=== PATIENT | female | born 1950 | race Caucasian/White ===

== ENCOUNTER 2021-08-15 08:00 | Outpatient (CLI) | payer MEDICARE ==
[2021-08-15 16:21] LABS: ALBUMIN 4.3 g/dL (3.2-5.5); ALBUMIN/GLOBULIN RATIO 1.3 (1.0-2.2); ALKALINE PHOSPHATASE 66 IU/L (42-121); ALT ALANINE AMINOTRANSFERASE 13 IU/L (10-60); AST ASPARTATE AMINOTRANSFERASE 21 IU/L (10-42); BILIRUBIN,TOTAL 0.6 mg/dL (0.2-1.0); BUN - BLOOD UREA NITROGEN 14 mg/dL (6-20); CALCIUM 8.9 mg/dL (8.5-10.3); CARBON DIOXIDE - CO2 30 mmol/L (21-32); CHLORIDE 97 mmol/L (101-111); CHOL/HDL RATIO 2.6 (<4.4); CHOLESTEROL 225 mg/dL; CREATININE 0.7 mg/dL (0.4-1.0); GFR - MDRD 83 (>89); GLUCOSE 121 mg/dL (70-100); HDL CHOLESTEROL 85 mg/dL; LDL CHOLESTEROL,CALCULATED 121 mg/dL; LDL/HDL RATIO 1.4 (<4.4); POTASSIUM 4.4 mmol/L (3.5-5.0); SODIUM 137 mmol/L (135-145); TOTAL PROTEIN 7.5 g/dL (6.7-8.2); TRIGLYCERIDES 93 mg/dL; VLDL CHOLESTEROL 19 mg/dL
[2021-08-16 10:00] LABS: HEPATITIS C ANTIBODY NON-REACTIVE (NON-REACTIVE)
[2021-08-17 10:57] LABS: ESTIMATED AVERAGE GLUCOSE 128 mg/dL (70-100); HEMOGLOBIN A1c% 6.1 % (4.27-6.07)
== END 2021-08-15 23:59 ==
LOC: LAB 08:00
PROVIDERS: ATTEND Internal Medicine
DX: J44.9 Chronic obstructive pulmonary disease, unspecified (principal); L50.8 Other urticaria; Z82.49 Family history of ischemic heart disease and other diseases of the circulatory system; M81.0 Age-related osteoporosis without current pathological fracture; J30.2 Other seasonal allergic rhinitis; Z72.0 Tobacco use; R73.01 Impaired fasting glucose
CPT/HCPCS: 36415; 80053; 80061; 82306; 83721; 84443; 86803

== ENCOUNTER 2021-08-15 11:18 | Outpatient (CLI) | payer MEDICARE ==
--- NOTE | 2021-08-15 13:06 | XRAY Report ---
PROCEDURE: Chest 2 View X-Ray INDICATIONS: COUGH,LT RIB PAIN AFTER FALL TECHNIQUE: 2 view(s) of the chest. COMPARISON: None. FINDINGS: SUPPORT DEVICES: None. LUNGS/PLEURA: Mildly coarsened interstitial markings. No focal consolidation, pleural effusion or spa ce-occupying pneumothorax. MEDIASTINUM: The cardiomediastinal silhouette is within normal limits. BONES/SOFT TISSUES: No acute abnormality. IMPRESSION: 1.No acute cardiopulmonary abnormality. Reviewed by: Jerson Doshi MD on 08/15/2021 1:04 PM [facility] Approved by: Jerson Doshi MD on 08/15/2021 1:04 PM [facility] Station ID: [id number]
--- NOTE | 2021-08-15 13:09 | XRAY Report ---
PROCEDURE: Ribs 2 View LT INDICATIONS: COUGH,LT RIB PAIN AFTER FALL TECHNIQUE: 2 views of the left ribs were acquired. COMPARISON: None. FINDINGS: BONES: No acute, displaced fracture or dislocation. SOFT TISSUES: No focal abnormality. IMPRESSION: 1.No appreciable left rib fracture. Reviewed by: Jerson Doshi MD on 08/15/2021 1:08 PM [facility] Approved by: Jerson Doshi MD on 08/15/2021 1:08 PM [facility] Station ID: [id number]
== END 2021-08-15 11:19 | disposition home or self-care (01) ==
LOC: DI 11:18
PROVIDERS: ATTEND Internal Medicine
DX: R07.82 Intercostal pain (principal); R05.9 Cough, unspecified; R07.81 Pleurodynia; J44.9 Chronic obstructive pulmonary disease, unspecified; L50.8 Other urticaria; Z82.49 Family history of ischemic heart disease and other diseases of the circulatory system; M81.0 Age-related osteoporosis without current pathological fracture; J30.2 Other seasonal allergic rhinitis; Z72.0 Tobacco use; R73.01 Impaired fasting glucose
CPT/HCPCS: 36415; 80053; 80061; 82306; 83721; 84443; 86803

== ENCOUNTER 2021-08-16 13:01 | Outpatient (CLI) | payer MEDICARE ==
[2021-08-16 13:18] LABS: BASOPHILS # (AUTO) 0.1 10^3/uL (0.0-0.1); BASOPHILS % (AUTO) 0.8 %; EOSINOPHILS # (AUTO) 0.2 10^3/uL (0.0-0.7); EOSINOPHILS % (AUTO) 2.1 %; HCT - HEMATOCRIT 47.2 % (37.0-47.0); HGB - HEMOGLOBIN 15.4 g/dL (12.0-16.0); LYMPHOCYTES # (AUTO) 3.4 10^3/uL (1.5-3.5); LYMPHOCYTES % (AUTO) 37.6 %; MEAN CORPUSCULAR HEMOGLOBIN 31.8 pg (27.0-31.0); MEAN CORPUSCULAR HGB CONC 32.6 g/dL (32.0-36.0); MEAN CORPUSCULAR VOLUME 97.5 fL (81.0-99.0); MEAN PLATELET VOLUME 8.8 fL (7.9-10.8); MONOCYTES # (AUTO) 0.7 10^3/uL (0.0-1.0); MONOCYTES % (AUTO) 8.1 %; NEUTROPHILS # (AUTO) 4.6 10^3/uL (1.5-6.6); NEUTROPHILS % (AUTO) 51.2 %; PLT - PLATELET COUNT 257 10^3/uL (130-450); RED BLOOD COUNT 4.84 10^6/uL (4.20-5.40); RED CELL DISTRIBUTION WIDTH 13.9 % (12.0-15.0); WHITE BLOOD COUNT 8.9 x10^3/uL (4.8-10.8)
== END 2021-08-16 13:02 | disposition home or self-care (01) ==
LOC: LAB 13:01
PROVIDERS: ATTEND Internal Medicine
DX: J44.9 Chronic obstructive pulmonary disease, unspecified (principal); L50.8 Other urticaria; Z82.49 Family history of ischemic heart disease and other diseases of the circulatory system; M81.0 Age-related osteoporosis without current pathological fracture; J30.2 Other seasonal allergic rhinitis; Z72.0 Tobacco use
CPT/HCPCS: 36415; 85025

== ENCOUNTER 2022-05-18 17:01 | Emergency (ER) | payer MEDICARE ==
[2022-05-18] MEDS ORDERED: SODIUM CHLORIDE 0.9% 1,000 ML IV STA (17:41)
[2022-05-18] MEDS ORDERED: NIRMATRELVIR/RITONAVIR PREPACK PO STA (17:41)
[2022-05-18] MEDS ORDERED: IPRATROPIUM/ALBUTEROL 3 ML NEB INH STA (17:42)
--- NOTE | 2022-05-18 17:47 | ED Physician Documentation ---
PD HPI DYSPNEA - Stated complaint Stated Complaint: C+ SOA/LOW O2 - Chief complaint Chief Complaint: Resp - History obtained from History obtained from: Patient - Additional information Additional information: 72-year-old woman with oxygen dependent COPD who generally wears 3 L of oxygen at home and is unimmunized against COVID because "I never go anywhere." Has unfortunately developed symptomatic COVID. She is been sick for about 4 to 5 days with cough, body aches, extreme tiredness, and reportedly noted a home oximetry today of 70. On my evaluation her oxygen saturations are in the mid to high 90s on 2 L of nasal cannula. Review of Systems Ten Systems: 10 systems reviewed and negative Constitutional: denies: Fever, Chills Throat: denies: Dental pain / toothache, Sore throat Cardiac: denies: Chest pain / pressure, Palpitations Respiratory: reports: Dyspnea, Cough PD PAST MEDICAL HISTORY - Present Medications Home Medications: Ambulatory Orders Medication Instructions Recorded Confirmed Albuterol Sulfate [Proair 05/18/22 Respiclick] Fluticasone Propion/Salmeterol 1 each IH DAILY 05/18/22 05/18/22 [Wixela 250-50 Inhub] - Allergies Allergies/Adverse Reactions: Allergies Allergy/AdvReac Type Severity Reaction Status Date / Time Penicillins Allergy Rash Verified 05/18/22 17:12 PD ED PE NORMAL - Vitals Vital signs reviewed: Yes - General General: Alert and oriented X 3, No acute distress - HEENT HEENT: PERRL, EOMI - Neck Neck: Supple, no meningeal sign, No bony TTP - Cardiac Cardiac: RRR, No murmur - Respiratory Respiratory: No respiratory distress, Clear bilaterally - Abdomen Abdomen: Soft, Non tender - Back Back: No CVA TTP, No spinal TTP - Derm Derm: Normal color, Warm and dry - Extremities Extremities: No edema, No calf tenderness / cord - Neuro Neuro: Alert and oriented X 3, Normal speech - Psych Psych: Normal mood, Normal affect Results - Vitals Vitals: Vital Signs - 24 hr 05/18/22 05/18/22 05/18/22 17:06 17:40 17:49 Temperature 38.0 C H Heart Rate 106 H 99 69 Respiratory 20 21 Rate Blood Pressure 96/71 O2 Saturation 92 95 If not protocol 3 : Oxygen Flow, liters/minute 05/18/22 19:02 Temperature 37.2 C Heart Rate 100 Respiratory 22 Rate Blood Pressure 116/76 O2 Saturation 95 If not protocol : Oxygen Flow, liters/minute Oxygen O2 Source Room air Oxygen Flow Rate 2 - Labs Labs: Laboratory Tests 05/18/22 05/18/22 17:54 18:10 WBC 7.3 RBC 4.94 Hgb 15.0 Hct 45.2 MCV 91.5 MCH 30.4 MCHC 33.2 RDW 13.3 Plt Count 257 MPV 11.0 H Neut # (Auto) 5.7 Lymph # (Auto) 0.9 L Arthur # (Auto) 0.7 Eos # (Auto) 0.0 Baso # (Auto) 0.0 Absolute Nucleated RBC 0.00 Nucleated RBC % 0.0 Sodium 134 L Potassium 4.1 Chloride 92 L Carbon Dioxide 31 Anion Gap 11.0 BUN 10 Creatinine 0.8 Estimated GFR (MDRD) 71 L Glucose 137 H Calcium 8.1 L - Rads (name of study) Single view chest x-ray is unremarkable Radiology: EMP read contemporaneously PD MEDICAL DECISION MAKING - ED course ED course: 72-year-old woman presents with symptomatic COVID. She is definitely a good candidate for antiviral medications. There was reported a home saturation of 70% but there was no desaturation at all here. No evidence of COVID-pneumonia on x-ray. Departure - Departure Disposition: 01 Home, Self Care Clinical Impression: COVID-19 Condition: Good Record reviewed to determine appropriate education?: Yes Instructions: ED Viral Syndrome Comments: You were seen today for COVID, thankfully your oxygen levels here have been just fine. No evidence of pneumonia on chest x-ray. We are prescribing antiviral medications that should help shorten the course of illness. You need to home quarantine for the next 10 days. Return for new or worsening symptoms. Discharge Date/Time: 05/18/22 19:02
[2022-05-18 18:02] LABS: BASOPHILS % (AUTO) 0.3 %; HCT - HEMATOCRIT 45.2 % (37.0-47.0); LYMPHOCYTES # (AUTO) 0.9 10^3/uL (1.5-3.5); LYMPHOCYTES % (AUTO) 12.4 %; MEAN CORPUSCULAR HEMOGLOBIN 30.4 pg (27.0-31.0); MEAN CORPUSCULAR HGB CONC 33.2 g/dL (32.0-36.0); MEAN CORPUSCULAR VOLUME 91.5 fL (81.0-99.0); MONOCYTES # (AUTO) 0.7 10^3/uL (0.0-1.0); MONOCYTES % (AUTO) 9.4 %; NEUTROPHILS # (AUTO) 5.7 10^3/uL (1.5-6.6); NEUTROPHILS % (AUTO) 77.6 %; PLT - PLATELET COUNT 257 10^3/uL (130-450); RED BLOOD COUNT 4.94 10^6/uL (4.20-5.40); RED CELL DISTRIBUTION WIDTH 13.3 % (12.0-15.0); WHITE BLOOD COUNT 7.3 x10^3/uL (4.8-10.8)
--- NOTE | 2022-05-18 18:21 | XRAY Report ---
PROCEDURE: Chest 1 View X-Ray INDICATIONS: dyspnea TECHNIQUE: One view of the chest was acquired. COMPARISON: None. FINDINGS: Surgical changes and devices: None. Lungs and pleura: No pleural effusions or pneumothorax. Lungs are clear. Mediastinum: Mediastinal contours appear normal. Heart size is normal. Bones and chest wall: No suspicious bony lesions. Overlying soft tissues appear unremarkable. IMPRESSION: No acute cardiopulmonary abnormality. Reviewed by: Benji Sol on 05/18/2022 6:19 PM [facility] Approved by: Benji Sol on 05/18/2022 6:19 PM [facility] Station ID: [id number]
[2022-05-18 18:23] LABS: CALCIUM 8.1 mg/dL (8.5-10.3); CREATININE 0.8 mg/dL (0.4-1.0); POTASSIUM 4.1 mmol/L (3.5-5.0)
[2022-05-18 19:03] VITALS: BP 116/76
== END 2022-05-18 19:02 | disposition home or self-care (01) ==
LOC: ED 17:01
DX: U07.1 COVID-19 (principal); J44.9 Chronic obstructive pulmonary disease, unspecified; Z99.81 Dependence on supplemental oxygen
CPT/HCPCS: 36415; 71045; 80048; 85025; 94640; 96360; 99283; 99285; J3490

== ENCOUNTER 2022-07-11 08:55 | Inpatient (IN) | payer MEDICARE ==
[2022-07-11] MEDS ORDERED: IPRATROPIUM/ALBUTEROL 3 ML NEB INH STA (09:26)
[2022-07-11] MEDS ORDERED: methylPREDNISolone SUCCINATE 125 MG/2 ML VIAL IVP STA (09:27)
[2022-07-11] MEDS ORDERED: ALBUTEROL NEB 2.5 MG/3 ML INH STA (09:27)
[2022-07-11 09:44] LABS: BASOPHILS # (AUTO) 0.1 10^3/uL (0.0-0.1); BASOPHILS % (AUTO) 0.6 %; EOSINOPHILS # (AUTO) 0.2 10^3/uL (0.0-0.7); EOSINOPHILS % (AUTO) 2.3 %; HCT - HEMATOCRIT 51.2 % (37.0-47.0); HGB - HEMOGLOBIN 15.7 g/dL (12.0-16.0); LYMPHOCYTES # (AUTO) 2.6 10^3/uL (1.5-3.5); LYMPHOCYTES % (AUTO) 30.4 %; MEAN CORPUSCULAR HEMOGLOBIN 29.6 pg (27.0-31.0); MEAN CORPUSCULAR HGB CONC 30.7 g/dL (32.0-36.0); MEAN CORPUSCULAR VOLUME 96.6 fL (81.0-99.0); MEAN PLATELET VOLUME 8.8 fL (7.9-10.8); MONOCYTES # (AUTO) 0.5 10^3/uL (0.0-1.0); MONOCYTES % (AUTO) 5.9 %; NEUTROPHILS # (AUTO) 5.2 10^3/uL (1.5-6.6); NEUTROPHILS % (AUTO) 60.6 %; PLT - PLATELET COUNT 314 10^3/uL (130-450); RED CELL DISTRIBUTION WIDTH 14.3 % (12.0-15.0); WHITE BLOOD COUNT 8.6 x10^3/uL (4.8-10.8)
[2022-07-11 09:52] LABS: ALBUMIN 4.2 g/dL (3.2-5.5); ALBUMIN/GLOBULIN RATIO 1.4 (1.0-2.2); BILIRUBIN,TOTAL 0.8 mg/dL (0.2-1.0); CALCIUM 8.9 mg/dL (8.5-10.3); CREATININE 0.7 mg/dL (0.4-1.0); POTASSIUM 3.9 mmol/L (3.5-5.0); TOTAL PROTEIN 7.2 g/dL (6.7-8.2)
--- NOTE | 2022-07-11 10:39 | XRAY Report ---
PROCEDURE: Chest 1 View X-Ray INDICATIONS: SOA TECHNIQUE: One view of the chest was acquired. COMPARISON: Chest x-ray 05/18/2022 FINDINGS: Surgical changes and devices: None. Lungs and pleura: . There is a large left pneumothorax with collapsed lung noted in the inferior me dial left lower lobe. There is Approximate 6 mm [id number] midline shift. Mild increased edema is noted within the right lung. Mediastinum: Mediastinal contours appear normal. Heart size is normal. Bones and chest wall: No suspicious bony lesions. Overlying soft tissues appear unremarkable. IMPRESSION: Large left pneumothorax with left to right midline shift as above. The above findings were discussed with Dr. Lauro Rodriguez on 07/11/2022 at 10:32 AM. Reviewed by: Kelli Buitrago MD on 07/11/2022 10:37 AM [facility] Approved by: Kelli Buitrago MD on 07/11/2022 10:37 AM [facility] Station ID: [id number]
[2022-07-11] MEDS ORDERED: KETAMINE 500 MG/10 ML VIAL IVP STA (10:42)
[2022-07-11] MEDS ORDERED: ONDANSETRON 4 MG/2 ML VIAL IVP STA (10:42)
[2022-07-11 11:03] LABS: B. PARAPERTUSSIS- RESP PCR PAN NOT DETECTED; B. PERTUSSIS- RESP PCR PANEL NOT DETECTED; C. PNEUMONIAE- RESP PCR PANEL NOT DETECTED; CORONAVIRUS 229E-RESP PCR NOT DETECTED; CORONAVIRUS HKU1-RESP PCR NOT DETECTED; CORONAVIRUS NL63-RESP PCR NOT DETECTED; CORONAVIRUS OC43-RESP PCR NOT DETECTED; HUMAN METAPNEUMOVIRUS NOT DETECTED; INFLUENZA A- RESP PCR PANEL NOT DETECTED; INFLUENZA B - RESP PCR PANEL NOT DETECTED; M. PNEUMONIAE- RESP PCR PANEL NOT DETECTED; PARAINFLUENZA VIRUS 1 NOT DETECTED; PARAINFLUENZA VIRUS 2 NOT DETECTED; PARAINFLUENZA VIRUS 3 NOT DETECTED; PARAINFLUENZA VIRUS 4 NOT DETECTED; RHINOVIRUS/ENTEROVIRUS NOT DETECTED; RSV- RESP PCR PANEL NOT DETECTED; SARS-CoV-2 -RESP PCR PANEL NOT DETECTED
--- NOTE | 2022-07-11 12:10 | XRAY Report ---
PROCEDURE: Chest for Line Placement INDICATIONS: post tube TECHNIQUE: One view of the chest was acquired. COMPARISON: None. FINDINGS: Surgical changes and devices: Left chest tube is present overlying the left lung. Lungs and pleura: Mild increased pulmonary vascularity. There is a minimal left apical pneumothorax persisting. No midline shift. Mediastinum: Mediastinal contours appear normal. Heart size is normal. Bones and chest wall: No suspicious bony lesions. Overlying soft tissues appear unremarkable. IMPRESSION: . Minimal residual left apical pneumothorax. Reviewed by: Kelli Buitrago MD on 07/11/2022 12:08 PM PST Approved by: Kelli Buitrago MD on 07/11/2022 12:08 PM [facility] Station ID: [id number]
--- NOTE | 2022-07-11 12:26 | ED Physician Documentation ---
PD HPI DYSPNEA - Stated complaint Stated Complaint: SOA - Chief complaint Chief Complaint: Resp - History obtained from History obtained from: Patient - Additional information Additional information: Patient is a 72-year-old with a history of COPD on oxygen presenting for evaluation of shortness of breath that she woke up with this morning. She tried her home inhalers without any improvement. She cannot get her oxygen levels to increase past the mid 70s. She reports having some discomfort to the mild chest. She has had a cough which is unchanged for her and is at times productive but this is also unchanged for her. She denies blood in her sputum. She denies fever. She denies abdominal pain, vomiting, trauma. Review of Systems Constitutional: denies: Fever Cardiac: reports: Chest pain / pressure Respiratory: reports: Dyspnea, Cough GI: denies: Abdominal Pain Musculoskeletal: denies: Back pain Neurologic: denies: Headache PD PAST MEDICAL HISTORY - Present Medications Home Medications: Ambulatory Orders Medication Instructions Recorded Confirmed Albuterol Sulfate [Proair 2 puffs PO QID PRN 05/18/22 07/11/22 Respiclick] Fluticasone Propion/Salmeterol 1 puffs IH BID 05/18/22 07/11/22 [Wixela 250-50 Inhub] Calcium Carbonate/Vitamin D3 1 tab PO DAILY 07/11/22 07/11/22 [Calcium 600-Vit D3 200 Tablet] Cyanocobalamin (Vitamin B-12) 1 tab PO DAILY 07/11/22 07/11/22 [Vitamin B-12 (1000 mcg sublingual)] Guaifenesin/Dextromethorphan 1 tab PO BID 07/11/22 07/11/22 [Mucinex Dm ER 600-30 mg Tablet] Krill/[place]-3/Dha/Epa/Lipids 1 cap PO DAILY 07/11/22 07/11/22 [Krill Oil 350 mg Softgel] Magnesium Oxide [Mag Ox] 1 tab PO DAILY 07/11/22 07/11/22 Multivit with Iron,Minerals 1 tab PO DAILY 07/11/22 07/11/22 [Multivitamins with Iron] - Allergies Allergies/Adverse Reactions: Allergies Allergy/AdvReac Type Severity Reaction Status Date / Time Penicillins Allergy Rash Verified 07/11/22 09:11 PD ED PE NORMAL - General General: Alert and oriented X 3, Other (Tachypneic, Cachectic) - HEENT HEENT: Atraumatic - Neck Neck: Supple, no meningeal sign - Cardiac Cardiac: RRR, No murmur - Respiratory Respiratory: Other (Diminished, wheezing) - Abdomen Abdomen: Soft, Non tender - Derm Derm: Warm and dry - Extremities Extremities: No edema - Neuro Neuro: Normal speech Results - Vitals Vitals: Vital Signs - 24 hr 07/11/22 07/11/22 07/11/22 09:05 09:40 09:41 Temperature 36.0 C L Heart Rate 97 83 98 Respiratory 27 H 20 26 H Rate Blood Pressure 138/92 H O2 Saturation 79 L 94 If not protocol 15 15 : Oxygen Flow, liters/minute 07/11/22 07/11/22 07/11/22 10:10 10:41 10:56 Temperature Heart Rate 80 90 85 Respiratory 18 22 24 Rate Blood Pressure 111/73 144/81 H O2 Saturation 97 95 If not protocol 6 6 15 : Oxygen Flow, liters/minute 07/11/22 07/11/22 07/11/22 11:00 11:05 11:22 Temperature Heart Rate 109 H 92 92 Respiratory 18 24 22 Rate Blood Pressure 174/100 H 133/71 H 150/100 H O2 Saturation 99 92 If not protocol 6 : Oxygen Flow, liters/minute 07/11/22 07/11/22 07/11/22 11:26 11:30 11:36 Temperature Heart Rate 98 84 80 Respiratory 20 16 14 Rate Blood Pressure 127/66 116/58 L O2 Saturation 92 92 If not protocol : Oxygen Flow, liters/minute 07/11/22 07/11/22 07/11/22 11:38 11:43 11:54 Temperature Heart Rate 76 79 92 Respiratory 14 18 22 Rate Blood Pressure 111/62 113/58 L 107/57 L O2 Saturation 92 91 L 92 If not protocol : Oxygen Flow, liters/minute 07/11/22 07/11/22 07/11/22 12:00 12:30 13:00 Temperature Heart Rate 72 72 72 Respiratory 18 18 18 Rate Blood Pressure 113/61 119/61 103/51 L O2 Saturation 92 92 94 If not protocol 6 6 6 : Oxygen Flow, liters/minute Oxygen O2 Source Nasal cannula Oxygen Flow Rate 6 - EKG (time done) 0948 Rate: Rate (enter#) (78) Rhythm: NSR Carroll: Normal Ischemia: No: ST elevation c/w ischemia - Labs Labs: Laboratory Tests 07/11/22 07/11/22 07/11/22 09:35 09:35 09:35 WBC 8.6 RBC 5.30 Hgb 15.7 Hct 51.2 H MCV 96.6 MCH 29.6 MCHC 30.7 L RDW 14.3 Plt Count 314 MPV 8.8 Neut # (Auto) 5.2 Lymph # (Auto) 2.6 [place] # (Auto) 0.5 Eos # (Auto) 0.2 Baso # (Auto) 0.1 Absolute Nucleated RBC 0.00 Nucleated RBC % 0.0 Sodium 141 Potassium 3.9 Chloride 100 L Carbon Dioxide 31 Anion Gap 10.0 BUN 10 Creatinine 0.7 Estimated GFR (MDRD) 82 L Glucose 144 H Lactic Acid 1.4 Calcium 8.9 Total Bilirubin 0.8 AST 19 ALT 13 Alkaline Phosphatase 73 Total Protein 7.2 Albumin 4.2 Globulin 3.0 Albumin/Globulin Ratio 1.4 Nasal Adenovirus (PCR) Nasal B. parapertussis DNA (PCR) Nasal Coronavir 229E PCR Nasal Coronavir HKU1 PCR Nasal Coronavir NL63 PCR Nasal Coronavir OC43 PCR Nasal Enterovir/Rhinovir PCR Nasal Influenza B PCR Nasal Influenza A PCR Nasal Parainfluen 1 PCR Nasal Parainfluen 2 PCR Nasal Parainfluen 3 PCR Nasal Parainfluen 4 PCR Nasal RSV (PCR) Nasal B.pertussis DNA PCR Nasal C.pneumoniae (PCR) James Human Metapneumo PCR Nasal M.pneumoniae (PCR) Nasal SARS-CoV-2 (PCR) 07/11/22 09:49 WBC RBC Hgb Hct MCV MCH MCHC RDW Plt Count MPV Neut # (Auto) Lymph # (Auto) [place] # (Auto) Eos # (Auto) Baso # (Auto) Absolute Nucleated RBC Nucleated RBC % Sodium Potassium Chloride Carbon Dioxide Anion Gap BUN Creatinine Estimated GFR (MDRD) Glucose Lactic Acid Calcium Total Bilirubin AST ALT Alkaline Phosphatase Total Protein Albumin Globulin Albumin/Globulin Ratio Nasal Adenovirus (PCR) NOT DETECTED Nasal B. parapertussis DNA (PCR) NOT DETECTED Nasal Coronavir 229E PCR NOT DETECTED Nasal Coronavir HKU1 PCR NOT DETECTED Nasal Coronavir NL63 PCR NOT DETECTED Nasal Coronavir OC43 PCR NOT DETECTED Nasal Enterovir/Rhinovir PCR NOT DETECTED Nasal Influenza B PCR NOT DETECTED Nasal Influenza A PCR NOT DETECTED Nasal Parainfluen 1 PCR NOT DETECTED Nasal Parainfluen 2 PCR NOT DETECTED Nasal Parainfluen 3 PCR NOT DETECTED Nasal Parainfluen 4 PCR NOT DETECTED Nasal RSV (PCR) NOT DETECTED Nasal B.pertussis DNA PCR NOT DETECTED Nasal C.pneumoniae (PCR) NOT DETECTED James Human Metapneumo PCR NOT DETECTED Nasal M.pneumoniae (PCR) NOT DETECTED Nasal SARS-CoV-2 (PCR) NOT DETECTED Procedures - Chest Tube (location) - Major left middle axillary line Chest tube preparation: Consent obtained, Time out completed, Sterile prep and drape Chest tube location: Left, Intercostal space - enter (2), Mid axillary line Chest tube anesthesia: Lidocaine Chest tube size: 13 Chest tube return: Air, Connected to suction Chest tube after care: Confirmed with xray, Pt tolerated well - Procedural sedation Sedation prep: Informed consent, Time out completed, Last meal, PE performed, ASA 3 - severe disease, IV O2 monitor, ET CO2 monitor, RT present Sedation Medications: ketamine Mallampati classification: II Patient status during sedation: Drowsy, Vitals remained stable, Maintained airway, Recovered uneventfully Sedation recovery: Recovered uneventfully Time in sedation (Minutes): 15 PD Medical Decision Making - ED course ED course: Patient was evaluated for shortness of breath. She was noted to be hypoxic requiring more oxygen than her baseline. On initial evaluation she appeared to be very diminished which was initially concerning for a COPD exacerbation she was giving neb treatments. Her chest x-ray however demonstrated a large left- sided pneumothorax. Patient was consented and with the use of ketamine a Thora vent was placed without complications. I did consult with general surgery. Patient will be admitted for further management.Does not appear to have pneumonia or other infection at this time. Denies trauma. D/W Dr. Parker (General surgery) who will see and admit the patient. - Critical Care Time(min): 32 Time Includes: Direct patient care, Reassess patient, Coordinate care Procedures excluded from critical care time: Chest tube Departure - Departure Disposition: 66 [facility] DC/Xfer Clinical Impression: COPD (chronic obstructive pulmonary disease) Pneumothorax Qualifiers: Pneumothorax type: spontaneous, primary Qualified Code(s): J93.11 - Primary spontaneous pneumothorax Condition: Serious Discharge Date/Time: 07/11/22 13:43
[2022-07-11] MEDS ORDERED: ONDANSETRON ODT 4 MG TABLET TL PRN (13:04)
[2022-07-11] MEDS ORDERED: SODIUM CHLORIDE FLUSH 0.9% 10 ML SYRINGE IVP PRN (13:04)
[2022-07-11] MEDS ORDERED: fentaNYL 100 MCG/2 ML VIAL IVP STA (13:07)
--- NOTE | 2022-07-11 14:40 | PHARMACY PROGRESS NOTE ---
- Best Possible Medication History Admit Date and Time: 07/11/22 1307 Processed by: Pharmacy Medication History completed: Yes Patient Interview: Completed Secondary Source(s): Pharmacy records (Pt knows her own meds) As the person ultimately responsible for medication therapy, providers are able to order a medication from an existing home medication list in [facility] via the "Reconcile Routine" prior to Confirmation of that medication by business support liaison. Such practice is discouraged except when the physician, in their clinical judgment, deems that a medical need exists for a medication without regard to previous use.
--- NOTE | 2022-07-11 14:41 | HISTORY & PHYSICAL EXAMINATION ---
Chief Complaint - Chief Complaint Chief Complaint: low oxygen History of Present Illness - Admitted From Admitted From:: ED - History Obtained From History obtained from: patient Exam Limitations: none - History of Present Illness HPI Comment/Other: The patient is a 72 yo female with a history of COPD. She states that she woke up this morning and had low O2 saturation. She asked her to bring her to the ED. She denies pain in her chest. She has a daily cough at baseline and states that it has not been abnormal. She has daily sputum production. She uses oxygen at night and during the day as needed if she is out and about. She is on her baseline meds. She denies fever. History - Past Medical History Cardiovascular: reports: None Respiratory: reports: COPD Neuro: reports: None Endocrine/Autoimmune: reports: None GI: reports: None CALL TAKER: reports: None : reports: None HEENT: reports: None Psych: reports: None Musculoskeletal: reports: Osteoarthritis Derm: reports: None - Past Surgical History /CALL TAKER: reports: Other (breast nodule removed) HEENT: reports: Cataracts - Family & Social History Family History: Mother: Alzheimer's Disease, Father: CAD Living arrangement: At home Living Situation: With spouse/s.o. - Substance History Use: Uses substance without health or social issues: Tobacco, Cannabis - POLST POLST Status: Full Code Meds/Allgy - Home Medications Home Medications: Ambulatory Orders Medication Instructions Recorded Confirmed Albuterol Sulfate [Proair 2 puffs PO QID PRN 05/18/22 07/11/22 Respiclick] Fluticasone Propion/Salmeterol 1 puffs IH BID 05/18/22 07/11/22 [Wixela 250-50 Inhub] Calcium Carbonate/Vitamin D3 1 tab PO DAILY 07/11/22 07/11/22 [Calcium 600-Vit D3 200 Tablet] Cyanocobalamin (Vitamin B-12) 1 tab PO DAILY 07/11/22 07/11/22 [Vitamin B-12 (1000 mcg sublingual)] Guaifenesin/Dextromethorphan 1 tab PO BID 07/11/22 07/11/22 [Mucinex Dm ER 600-30 mg Tablet] Krill/[place]-3/Dha/Epa/Lipids 1 cap PO DAILY 07/11/22 07/11/22 [Krill Oil 350 mg Softgel] Magnesium Oxide [Mag Ox] 1 tab PO DAILY 07/11/22 07/11/22 Multivit with Iron,Minerals 1 tab PO DAILY 07/11/22 07/11/22 [Multivitamins with Iron] - Allergies Allergies/Adverse Reactions: Allergies Allergy/AdvReac Type Severity Reaction Status Date / Time Penicillins Allergy Rash Verified 07/11/22 09:11 Review of Systems - Respiratory Respiratory: reports: Cough, Sputum production - Musculoskeletal Musculoskeletal: reports: Other (osteo arthirits) Exam - Vital Signs Vital Signs: Vital Signs x48h Temp Pulse Resp BP Pulse Ox O2 Flow Rate 07/11/22 13:39 4 07/11/22 13:14 74 14 102/56 L 95 4 07/11/22 13:00 72 18 103/51 L 94 6 07/11/22 12:30 72 18 119/61 92 6 07/11/22 12:00 72 18 113/61 92 6 07/11/22 11:54 92 22 107/57 L 92 07/11/22 11:43 79 18 113/58 L 91 L 07/11/22 11:38 76 14 111/62 92 07/11/22 11:36 80 14 116/58 L 92 07/11/22 11:30 84 16 127/66 92 07/11/22 11:26 98 20 07/11/22 11:22 92 22 150/100 H 07/11/22 11:05 92 24 133/71 H 92 07/11/22 11:00 109 H 18 174/100 H 99 6 07/11/22 10:56 85 24 144/81 H 95 15 07/11/22 10:41 90 22 6 07/11/22 10:10 80 18 111/73 97 6 07/11/22 09:41 98 26 H 15 07/11/22 09:40 83 20 94 15 07/11/22 09:05 96.8 F L 97 27 H 138/92 H 79 L - Physical Exam General Appearance: positive: No acute distress, Alert Eyes Bilateral: positive: Normal inspection Neck: positive: Nml inspection Respiratory: positive: Chest non-tender, No respiratory distress, Wheezes (left chest tube in place) Cardiovascular: positive: Regular rate & rhythm, No murmur, No gallop Peripheral Pulses: positive: 2+ Abdomen: positive: Non-tender, No organomegaly, Nml bowel sounds, No distention Back: positive: Nml inspection Skin: positive: Color nml Extremities: positive: Non-tender, Full ROM Neurologic/Psychiatric: positive: Oriented x3 Conclusion/Plan - Lab Results Fish Bones: 07/11/22 09:35 07/11/22 09:35 - Diagnostic Imaging Results Diagnostic Imaging Results: positive: Final report reviewed - Other Other Results/Comments: Plan for management pneumothorax with chest tube to suction, pulmonary toilet, daily chest x-rays. I discussed with the patient that this may resolve with chest tube management or could involve transfer to a higher level of care for intervention with cardiothoracic surgery. She is understanding of the plan and consents to proceed. Core Measures - DVT/VTE - Prophylaxis VTE/DVT Device ordered at admit?: Yes VTE/DVT Prophylaxis med ordered at admit?: Yes
[2022-07-11] MEDS: SODIUM CHLORIDE FLUSH 0.9% 10 ML SYRINGE IVP SCH (16:19)
[2022-07-11] MEDS: ACETAMINOPHEN 325 MG TABLET PO PRN ×2 (16:20→20:32)
[2022-07-11] MEDS ORDERED: ALBUTEROL 6.7 GM INHALER INH PRN (17:09)
[2022-07-11] MEDS ORDERED: guaiFENesin/DEXTROMETHORPHAN 10 ML UDC PO PRN (18:00)
[2022-07-11] MEDS: IBUPROFEN 400 MG TABLET PO PRN (19:50)
[2022-07-11] MEDS: FORMOTEROL FUMARATE NEB 20 MCG/2 ML INH SCH (21:55)
[2022-07-11] MEDS: ALBUTEROL NEB 2.5 MG/3 ML INH PRN (21:55)
[2022-07-11] MEDS: BUDESONIDE 0.5 MG/2 ML NEB INH SCH (21:55)
[2022-07-12] MEDS: ACETAMINOPHEN 325 MG TABLET PO PRN ×3 (00:16→16:14)
[2022-07-12] MEDS: SODIUM CHLORIDE FLUSH 0.9% 10 ML SYRINGE IVP SCH ×3 (01:11→21:38)
[2022-07-12] MEDS: IBUPROFEN 400 MG TABLET PO PRN ×2 (04:53→19:28)
[2022-07-12] MEDS: FORMOTEROL FUMARATE NEB 20 MCG/2 ML INH SCH (07:47)
[2022-07-12] MEDS: BUDESONIDE 0.5 MG/2 ML NEB INH SCH (07:47)
[2022-07-12] MEDS: ALBUTEROL NEB 2.5 MG/3 ML INH PRN (07:47)
[2022-07-12] MEDS: ENOXAPARIN 40 MG/0.4 ML SYRINGE SUBQ SCH (08:50)
--- NOTE | 2022-07-12 11:01 | XRAY Report ---
PROCEDURE: Chest 2 View X-Ray INDICATIONS: pneumothorax TECHNIQUE: 2 views of the chest were acquired. COMPARISON: CXR 07/11/2022 at 1121 hours, 0911 hours, and CXR 05/18/2022. FINDINGS: Surgical changes and devices: Left anterior pleural drain with the tip projecting at the anterior inf erior chest. Lungs and pleura: The left-sided pneumothorax is no longer appreciated. Bibasilar opacity. No large p leural effusion. Mediastinum: Mediastinal contours are unchanged. Colonic bowel gas projecting at the left lung base. This could be projectional or due to left diaphragmatic eventration. Unlikely diaphragmatic hernia. Heart size is normal. Bones and chest wall: No suspicious bony abnormalities. Left chest wall subcutaneous emphysema, incr eased. IMPRESSION: Left-sided pneumothorax is no longer appreciated. Left-sided chest tube is not significant changed in position. There is increased left chest wall subcutaneous emphysema. Left greater than right basilar opacity. CT of the chest could be considered for further evaluation. Reviewed by: Tim Plunkett MD on 07/12/2022 11:00 AM PST Approved by: Tim Plunkett MD on 07/12/2022 11:00 AM PST Station ID: [id number]
[2022-07-12] MEDS ORDERED: polyethylene glycoL 3350 17 GM PACKET PO ONE (12:37)
[2022-07-12] MEDS ORDERED: traMADol 50 MG TABLET PO PRN (12:37)
--- NOTE | 2022-07-12 13:21 | PROVIDER PROGRESS NOTE ---
Subjective - Prog Note Date Prog Note Date: 07/12/22 Prog Note Time: 13:19 - Subjective Pt reports feeling: No change (Patient did not sleep well. States she has pain lateral to the chest tube. Otherwise no complaints) Objective - Vital Signs/Intake & Output Vital Signs: Vital Signs x48h Temp Pulse Pulse Resp BP Pulse Ox O2 Flow Rate 07/12/22 07:55 97.9 F 73 24 97/53 L 92 4 07/12/22 07:48 76 24 4 Intake & Output: Intake & Output 07/09/22 07/10/22 07/11/22 07/12/22 23:59 23:59 23:59 23:59 Intake Total 1420 1220 Output Total 0 Balance 1420 1220 - Objective General Appearance: positive: No acute distress, Alert Neck: positive: Nml inspection Respiratory: positive: No respiratory distress, Breath sounds nml (Left chest tube in place, no palpable air in the chest wall Chest tube on suction, no evidence of air leak) Cardiovascular: positive: Regular rate & rhythm Peripheral Pulses: 2+ Radial (R), 2+ Radial (L) Abdomen: positive: Non-tender, No organomegaly, No distention Skin: positive: Color nml Neurologic/Psychiatric: positive: Oriented x3 (Some confusion) - Lab Results Fish Bones: 07/11/22 09:35 07/11/22 09:35 - Diagnostic Imaging Diagnostic Imaging Results: positive: Final report reviewed, Other (films reviewed) ABX Reporting Has patient been on IV antibiotics over the past 48 hours?: No Assessment/Plan - Problem List (1) Pneumothorax Qualifiers: Pneumothorax type: spontaneous, primary Qualified Code(s): J93.11 - Primary spontaneous pneumothorax
[2022-07-12] MEDS: ALBUTEROL SULFATE 90 MCG PO PRN (14:23)
[2022-07-12] MEDS: FLUTICASONE PO SCH (21:07)
[2022-07-12] MEDS: [UNRECOGNIZED DRUG - OTHER] PO SCH (21:07)
[2022-07-13] MEDS: SODIUM CHLORIDE FLUSH 0.9% 10 ML SYRINGE IVP SCH ×3 (02:08→17:13)
[2022-07-13] MEDS: ACETAMINOPHEN 325 MG TABLET PO PRN ×2 (06:52→13:30)
--- NOTE | 2022-07-13 07:17 | XRAY Report ---
PROCEDURE: Chest 1 View X-Ray INDICATIONS: Whistling heard by chest tube. TECHNIQUE: One view of the chest was acquired. COMPARISON: 07/12/2022 FINDINGS: Surgical changes and devices: Similar position and left chest tube. No appreciable pneumothorax. Lungs and pleura: Similar left pleural fluid and mid and lower lung opacities. Mediastinum: Mediastinal contours appear normal. Heart size is normal. Bones and chest wall: Decreased subcutaneous emphysema. IMPRESSION: Persistent subcutaneous emphysema without appreciable pneumothorax. Persistent left lung opacities an d small fluid. Agree with preliminary report. Reviewed by: Sergio Garcia MD on 07/13/2022 7:16 AM PST Approved by: Sergio Garcia MD on 07/13/2022 7:16 AM PST Station ID: [id number]
[2022-07-13] MEDS: ENOXAPARIN 40 MG/0.4 ML SYRINGE SUBQ SCH (08:18)
[2022-07-13] MEDS: ALBUTEROL SULFATE 90 MCG PO PRN (09:04)
[2022-07-13] MEDS: FLUTICASONE PO SCH ×2 (09:04→20:45)
[2022-07-13] MEDS: [UNRECOGNIZED DRUG - OTHER] PO SCH ×2 (09:04→20:45)
[2022-07-13] MEDS: IBUPROFEN 400 MG TABLET PO PRN (16:21)
--- NOTE | 2022-07-13 16:27 | PROVIDER PROGRESS NOTE ---
Subjective - Subjective Pt reports feeling: No change (no breathing problems. subcutaneous air has not increased) Objective - Vital Signs/Intake & Output Vital Signs: Vital Signs x48h Temp Pulse Pulse Resp BP Pulse Ox O2 Flow Rate 07/13/22 15:30 37.0 C 89 14 107/60 95 4 07/13/22 11:29 36.8 C 80 14 111/69 95 4 07/13/22 09:05 82 24 4 07/13/22 08:29 4 Intake & Output: Intake & Output 07/10/22 07/11/22 07/12/22 07/13/22 23:59 23:59 23:59 23:59 Intake Total 1420 2160 1065 Output Total 0 0 0 Balance 1420 2160 1065 - Objective General Appearance: positive: No acute distress, Alert Eyes Bilateral: positive: PERRL, EOMI Neck: positive: Trachea midline Respiratory: positive: No respiratory distress, Other (chest tube removed and dressing applied) Neurologic/Psychiatric: positive: Oriented x3 - Lab Results Fish Bones: 07/11/22 09:35 07/11/22 09:35 - Diagnostic Imaging Diagnostic Imaging Results: positive: Read independently Assessment/Plan - Problem List (1) Pneumothorax Impression: pneumothorax resolved. moderate subcutaneous air present without change per patient. chest tube no longer functional. chest tube removed plan cxr in am. if subcut air progresses or pneumothrorax recurs plan larger lateral chest tube Qualifiers: Pneumothorax type: spontaneous, primary Qualified Code(s): J93.11 - Primary spontaneous pneumothorax
--- NOTE | 2022-07-13 17:36 | CONSULTATION NOTE ---
Referring Provider Name of Referring Provider:: Dr. Parker Consult Date: 07/13/22 Chief Complaint - Chief Complaint Chief Complaint: copd History of Present Illness - Admitted From Admitted From:: home - History Obtained From Records Reviewed: [facility] History obtained from: Dr. 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 - Substance History Use: Uses substance without health or social issues: Tobacco, Cannabis - POLST POLST Status: Full Code Meds/Allgy - Home Medications Home Medications: Ambulatory Orders Medication Instructions Recorded Confirmed Albuterol Sulfate [Proair 2 puffs PO QID PRN 05/18/22 07/11/22 Respiclick] Fluticasone Propion/Salmeterol 1 puffs IH BID 05/18/22 07/11/22 [Wixela 250-50 Inhub] Calcium Carbonate/Vitamin D3 1 tab PO DAILY 07/11/22 07/11/22 [Calcium 600-Vit D3 200 Tablet] Cyanocobalamin (Vitamin B-12) 1 tab PO DAILY 07/11/22 07/11/22 [Vitamin B-12 (1000 mcg sublingual)] Guaifenesin/Dextromethorphan 1 tab PO BID 07/11/22 07/11/22 [Mucinex Dm ER 600-30 mg Tablet] Krill/Liguori-3/Dha/Epa/Lipids 1 cap PO DAILY 07/11/22 07/11/22 [Krill Oil 350 mg Softgel] Magnesium Oxide [Mag Ox] 1 tab PO DAILY 07/11/22 07/11/22 Multivit with Iron,Minerals 1 tab PO DAILY 07/11/22 07/11/22 [Multivitamins with Iron] - Allergies Allergies/Adverse Reactions: Allergies Allergy/AdvReac Type Severity Reaction Status Date / Time Penicillins Allergy Rash Verified 07/11/22 09:11 Review of Systems - Constitutional Constitutional: reports: Fatigue. denies: Poor appetite, Weight loss - Eyes Eyes: denies: Pain, Blurred vision, Vision loss, Dipolpia - Ears, Nose & Throat Ears, Nose & Throat: reports: Hearing loss. denies: Hearing aids, Dentures, Sore throat, Hoarseness - Cardiovascular Cariovascular: reports: Exertional dyspnea, Decr. exercise tolerance. denies: Irregular heart rate, Palpitations, Chest pain - Respiratory Respiratory: reports: Cough, Sputum production, Wheezing, SOB at rest, SOB with exertion - Gastrointestinal Gastrointestinal: denies: Abdominal pain, Abdominal distention, Constipation, Change in bowel habits - Genitourinary Genitourinary: reports: Urgency. denies: Dysuria - Musculoskeletal Musculoskeletal: reports: Back pain, Joint pain. denies: Muscle aches, Stiffness, Gout - Integumentary Integumentary: denies: Rash, Pruritis - Neurological Neurological: denies: General weakness, Focal weakness, Headache, Memory problems, Pre-existing deficit - Psychiatric Psychiatric: denies: Depression, Anxiety, Suicidal - Endocrine Endocrine: denies: Polyuria, Polydypsia, Polyphagia - Hematologic/Lymphatic Hematologic/Lymphatic: denies: Anemia Exam - Vital Signs Reviewed Vital Signs: Yes Vital Signs: Vital Signs x48h Temp Pulse Resp BP Pulse Ox O2 Flow Rate 07/13/22 15:30 37.0 C 89 14 107/60 95 4 07/13/22 11:29 36.8 C 80 14 111/69 95 4 - Physical Exam General Appearance: positive: Alert (Thin, anxious white female. She says that this place is driving her crazy. Concerned about crepitance in her neck and chest) Eyes Bilateral: positive: PERRL, EOMI ENT: positive: No signs of dehydration Neck: positive: No JVD. negative: Stiff neck Respiratory: positive: No respiratory distress, Rhonchi, Other (Chest tube in left chest. Crepitance of the anterior left chest wall, up the left neck, down the left arm.). negative: Rales Cardiovascular: positive: Regular rate & rhythm Peripheral Pulses: positive: 1+ Abdomen: positive: Non-tender, No organomegaly, Nml bowel sounds Skin: positive: No rash, Warm Extremities: positive: Full ROM, No pedal edema Neurologic/Psychiatric: positive: Oriented x3, CN's nml (2-12), Motor nml Conclusion/Plan - Problem List (1) COPD (chronic obstructive pulmonary disease) Conclusion/Plan: This is a lady who is a smoker, COPD status that is chronic. She is tender unexpected complication with pneumothorax and General surgery is following that. General surgery has consulted us to ask us to manage her COPD meds. The patient is adamant she does not want to take our hospital inhalers. She only wants to take her handheld inhaler from home. So I have written the order for handheld inhaler from home. At this time no other interventions on our service. We will follow peripherally and intervene as needed Qualifiers: COPD type: emphysema Emphysema type: centrilobular Qualified Code(s): J43.2 - Centrilobular emphysema - Lab Results Lab results reviewed: Yes Fish Bones: 07/11/22 09:35 07/11/22 09:35
[2022-07-14] MEDS: SODIUM CHLORIDE FLUSH 0.9% 10 ML SYRINGE IVP SCH ×3 (01:32→16:53)
[2022-07-14] MEDS: FLUTICASONE PO SCH ×3 (06:52→21:34)
[2022-07-14] MEDS: ALBUTEROL SULFATE 90 MCG PO PRN ×4 (06:52→21:34)
[2022-07-14] MEDS: [UNRECOGNIZED DRUG - OTHER] PO SCH ×3 (06:52→21:34)
--- NOTE | 2022-07-14 08:07 | XRAY Report ---
PROCEDURE: Chest 1 View X-Ray INDICATIONS: follow up ptx TECHNIQUE: One view of the chest was acquired. COMPARISON: 07/13/2022, 07/12/2022, 07/11/2022. FINDINGS: Surgical changes and devices: Interval removal of previously noted left-sided chest tube.. Lungs and pleura: There is trace left apical pneumothorax. Left basilar atelectasis/small infiltrat e is seen. Trace left pleural effusion is also noted. Increased interstitial lung markings bilaterall y which may indicate interstitial pulmonary edema. No right-sided pneumothorax. Mediastinum: Mediastinal contours appear normal. Heart size is normal. Bones and chest wall: No suspicious bony lesions. Subcutaneous emphysema in left lower neck and left axilla is again seen. IMPRESSION: Interval removal of left-sided chest tube. Suggestion of trace left apical pneumothorax. Trace left pleural effusion and left basilar small infiltrate/atelectasis. Increased interstitial erasmo g markings bilaterally which may represent pulmonary edema versus mild pneumonitis. No right-sided pn eumothorax. Reviewed by: Manas Ramey MD on 07/14/2022 8:05 AM PST Approved by: Manas Ramey MD on 07/14/2022 8:05 AM PST Station ID: [id number]
[2022-07-14] MEDS: ENOXAPARIN 40 MG/0.4 ML SYRINGE SUBQ SCH (08:50)
[2022-07-14] MEDS: ACETAMINOPHEN 325 MG TABLET PO PRN ×2 (14:15→21:39)
--- NOTE | 2022-07-14 15:28 | PROVIDER PROGRESS NOTE ---
Subjective - Subjective Pt reports feeling: Improved (still uncomfortable with left chest, neck, left arm swelling) Objective - Vital Signs/Intake & Output Reviewed Vital Signs: Yes Vital Signs: Vital Signs x48h Temp Pulse Pulse Resp BP Pulse Ox O2 Flow Rate 07/14/22 11:22 87 18 4 07/14/22 11:07 37.3 C 86 14 99/65 96 Intake & Output: Intake & Output 07/11/22 07/12/22 07/13/22 07/14/22 23:59 23:59 23:59 23:59 Intake Total 1420 2160 2121 780 Output Total 0 0 0 Balance 1420 2160 2121 780 - Objective General Appearance: positive: No acute distress, Alert Eyes Bilateral: positive: PERRL, EOMI ENT: positive: No signs of dehydration Neck: positive: No JVD, Trachea midline Respiratory: positive: Chest non-tender Abdomen: positive: No distention Neurologic/Psychiatric: positive: Oriented x3 - Lab Results Fish Bones: 07/11/22 09:35 07/11/22 09:35 - Diagnostic Imaging Diagnostic Imaging Results: positive: Read independently Assessment/Plan - Problem List (1) Pneumothorax Impression: possible small remaining pneumothorax. still has considerable subcutaneous air left chest wall, left arm, left neck; h owever, much improved plan home when more resolved, likely tomorrow Qualifiers: Pneumothorax type: spontaneous, primary Qualified Code(s): J93.11 - Primary spontaneous pneumothorax
[2022-07-14] MEDS: IBUPROFEN 400 MG TABLET PO PRN (23:58)
[2022-07-15] MEDS: SODIUM CHLORIDE FLUSH 0.9% 10 ML SYRINGE IVP SCH ×2 (00:01→09:05)
[2022-07-15] MEDS: ACETAMINOPHEN 325 MG TABLET PO PRN (07:44)
[2022-07-15] MEDS: ENOXAPARIN 40 MG/0.4 ML SYRINGE SUBQ SCH (09:04)
[2022-07-15] MEDS: FLUTICASONE PO SCH (09:05)
[2022-07-15] MEDS: [UNRECOGNIZED DRUG - OTHER] PO SCH (09:05)
--- NOTE | 2022-07-15 09:12 | Discharge Plan ---
Discharge Plan Problem Reviewed?: Yes Disposition: Home, Self Care Condition: Good Diet: Regular Activity Restrictions: No Restrictions Shower Restrictions: No Driving Restrictions: No Health Concerns: copd Plan of Treatment: chest tube placed per ED 07/11/2022 Assessment: spontaneous pneumothorax requiring chest tube and care. Chest tube out and doing well by 07/15/2022 Additional Instructions or Follow Up instructions: call the surgery office with any concerns change the dressing as needed [phone] No Smoking: If you smoke, Please STOP! Call for help. Follow-up with: Harini Luna MD [Primary Care Provider] -
[2022-07-15] MEDS: ALBUTEROL SULFATE 90 MCG PO PRN ×2 (09:15→13:15)
--- NOTE | 2022-07-15 09:15 | DISCHARGE SUMMARY ---
"Discharge Summary Admit Date: 07/11/22 Discharge Date: 07/15/22 Discharging Provider: matthew michel md Code Status: Attempt Resuscitation Discharge Facility Name: [facility] - DIAGNOSES Admission Diagnoses: copd and spontaneous pneumothorax Discharge Diagnoses with Status of Each Condition: home in good condition. - HPI History of Present Illness: presented to ED with shortness of breath and chest discomfort. Anterior chest tube placed and removed 2 days later. She developed significant subcutaneous emphysema which slowly improved by time of discharge. Breathing was at baseline at time of discharge - CONSULTS | PROCEDURES Procedures: as above. chest tube placement, care, removal. rt consult and treatment for copd - HOSPITAL COURSE Hospital Course: as above - ALLERGIES Allergies/Adverse Reactions: Allergies Allergy/AdvReac Type Severity Reaction Status Date / Time Penicillins Allergy Rash Verified 07/11/22 09:11 - MEDICATIONS Home Medications: Ambulatory Orders Medication Instructions Recorded Confirmed Albuterol Sulfate [Proair 2 puffs PO QID PRN 05/18/22 07/11/22 Respiclick] Fluticasone Propion/Salmeterol 1 puffs IH BID 05/18/22 07/11/22 [Wixela 250-50 Inhub] Calcium Carbonate/Vitamin D3 1 tab PO DAILY 07/11/22 07/11/22 [Calcium 600-Vit D3 200 Tablet] Cyanocobalamin (Vitamin B-12) 1 tab PO DAILY 07/11/22 07/11/22 [Vitamin B-12 (1000 mcg sublingual)] Guaifenesin/Dextromethorphan 1 tab PO BID 07/11/22 07/11/22 [Mucinex Dm ER 600-30 mg Tablet] Krill/[place]-3/Dha/Epa/Lipids 1 cap PO DAILY 07/11/22 07/11/22 [Krill Oil 350 mg Softgel] Magnesium Oxide [Mag Ox] 1 tab PO DAILY 07/11/22 07/11/22 Multivit with Iron,Minerals 1 tab PO DAILY 07/11/22 07/11/22 [Multivitamins with Iron] - PHYSICAL EXAM AT DISCHARGE General Appearance: positive: No acute distress, Alert Respiratory: positive: No respiratory distress Abdomen: positive: Non-tender, No distention Skin: positive: Other (subcutaneous emphysema much improved) Neurologic/Psychiatric: positive: Oriented x3 - LABS Result Diagrams: 07/11/22 09:35 07/11/22 09:35 - DIAGNOSTIC IMAGING Diagnostic Imaging Results: Read independently - FOLLOW UP Follow Up: call the surgery office with any concerns change the dressing as needed [phone]"
[2022-07-15 14:44] VITALS: BP 113/80
== END 2022-07-15 14:50 | disposition home or self-care (01) | DRG 201 ==
LOC: ED 08:55 → MS3 13:04
PROVIDERS: ADMIT Specialist; ATTEND Surgery
DX: J93.11 Primary spontaneous pneumothorax (principal); J44.9 Chronic obstructive pulmonary disease, unspecified; R09.02 Hypoxemia; Z20.822 Contact with and (suspected) exposure to COVID-19; Z99.81 Dependence on supplemental oxygen; J43.2 Centrilobular emphysema; F17.200 Nicotine dependence, unspecified, uncomplicated
CPT/HCPCS: 32551; 36415; 71045; 71046; 80053; 83605; 85025; 87040; 87633; 93005; 94640; 94664; 96374; 96375; 99152; 99291; A9270; J1650; J7613; J7626; 94770

== ENCOUNTER 2022-08-03 12:14 | Outpatient (CLI) | payer MEDICARE ==
[2022-08-03] MEDS ORDERED: iohexoL-300 100 ML VIAL ONE (12:29)
--- NOTE | 2022-08-03 13:34 | CT Report ---
PROCEDURE: CHEST W INDICATIONS: COPD, HYPOXIA CONTRAST:100ml Omnipaque 300 TECHNIQUE: After the administration of intravenous contrast, 1 mm axial images were acquired from the pulmonary apices through the posterior costophrenic angles. Axial 5 mm soft tissue kernel reconstructions were performed as well as 8 mm axial MIP and coronal and sagittal 5 mm reformations. For radiation dose reduction, the following was used: automated exposure control, adjustment of mA and/or kV according to patient size. COMPARISON: None. FINDINGS: Image quality: Excellent. Lungs and pleura: There is a large left pneumothorax. Small left pleural effusion. Left upper lobe co llapse is present. There is focal opacity within the left upper lobe posterior inferiorly measuring r oughly 72 mm. Subpleural opacity within the left lower lobe posterior medially measuring 36 mm. Spicu lated density within the right posterior medial lung base measuring 10 mm. Central and peripheral air ways are patent and normal in caliber. Mediastinum: Heart size is normal. No pericardial effusion. No mediastinal or hilar adenopathy by size criteria. Thoracic aorta and central pulmonary arteries are normal in size. Esophagus is colton l in caliber. No hiatal hernia. Bones and chest wall: No suspicious bony lesions. No vertebral body compression fractures. No axil moises or supraclavicular adenopathy by size criteria. The thyroid is normal in size and there are no incidental findings.. Abdomen: Visualized upper abdominal solid organs appear normal. Upper abdominal bowel loops are nor mal in caliber. IMPRESSION: 1. Large left pneumothorax. Small left pleural effusion. Patient's referring clinician will be contac maria elena regarding management, with potential transfer to the emergency room. 2. Left upper and lower lobe, as well as right basilar densities as described above, possibly indicat ing pneumonia; malignancy cannot be excluded. Follow-up imaging is recommended to document stability/ resolution. Reviewed by: Dawson Garza MD on 08/03/2022 1:32 PM PST Approved by: Dawson Garza MD on 08/03/2022 1:32 PM PST Station ID: [id number]
[2022-08-03] MEDS ORDERED: iohexoL-300 100 ML VIAL IVP ONE (16:47)
== END 2022-08-03 12:15 | disposition home or self-care (01) ==
LOC: DI 12:14
PROVIDERS: ATTEND Internal Medicine
DX: J44.9 Chronic obstructive pulmonary disease, unspecified (principal); R09.02 Hypoxemia; J93.9 Pneumothorax, unspecified; J90 Pleural effusion, not elsewhere classified; R91.8 Other nonspecific abnormal finding of lung field; Z79.899 Other long term (current) drug therapy
CPT/HCPCS: 71260; Q9967

== ENCOUNTER 2022-08-03 14:04 | Emergency (ER) | payer MEDICARE ==
[2022-08-03] MEDS ORDERED: KETAMINE 500 MG/10 ML VIAL IVP STA (14:22)
[2022-08-03] MEDS ORDERED: ONDANSETRON 4 MG/2 ML VIAL IVP STA (14:22)
[2022-08-03 14:33] LABS: BASOPHILS # (AUTO) 0.1 10^3/uL (0.0-0.1); BASOPHILS % (AUTO) 0.9 %; EOSINOPHILS # (AUTO) 0.6 10^3/uL (0.0-0.7); EOSINOPHILS % (AUTO) 6.7 %; HCT - HEMATOCRIT 47.1 % (37.0-47.0); HGB - HEMOGLOBIN 14.2 g/dL (12.0-16.0); LYMPHOCYTES # (AUTO) 2.4 10^3/uL (1.5-3.5); LYMPHOCYTES % (AUTO) 28.8 %; MEAN CORPUSCULAR HEMOGLOBIN 29.3 pg (27.0-31.0); MEAN CORPUSCULAR HGB CONC 30.1 g/dL (32.0-36.0); MEAN CORPUSCULAR VOLUME 97.3 fL (81.0-99.0); MEAN PLATELET VOLUME 8.9 fL (7.9-10.8); MONOCYTES # (AUTO) 0.6 10^3/uL (0.0-1.0); MONOCYTES % (AUTO) 7.5 %; NEUTROPHILS # (AUTO) 4.6 10^3/uL (1.5-6.6); NEUTROPHILS % (AUTO) 55.9 %; PLT - PLATELET COUNT 311 10^3/uL (130-450); RED BLOOD COUNT 4.84 10^6/uL (4.20-5.40); RED CELL DISTRIBUTION WIDTH 13.5 % (12.0-15.0); WHITE BLOOD COUNT 8.2 x10^3/uL (4.8-10.8)
[2022-08-03 14:39] LABS: PT - PROTHROMBIN TIME 11.8 secs (9.9-12.6)
[2022-08-03 14:45] LABS: ALBUMIN 3.9 g/dL (3.2-5.5); ALBUMIN/GLOBULIN RATIO 1.1 (1.0-2.2); BILIRUBIN,TOTAL 0.6 mg/dL (0.2-1.0); CALCIUM 9.5 mg/dL (8.5-10.3); CREATININE 0.6 mg/dL (0.4-1.0); POTASSIUM 4.3 mmol/L (3.5-5.0); TOTAL PROTEIN 7.4 g/dL (6.7-8.2)
--- NOTE | 2022-08-03 14:59 | ED Physician Documentation ---
PD HPI DYSPNEA - Stated complaint Stated Complaint: LUNG COLLAPSING - Chief complaint Chief Complaint: Resp - History obtained from History obtained from: Patient - Additional information Additional information: Patient is a 72-year-old female with a history of COPD and recent pneumothorax presenting for evaluation of abnormal CT scan demonstrating a large left pneumothorax. She was seen 1 month ago on July 11 with shortness of breath and left-sided chest pain and found to have a large left pneumothorax. She was admitted to the hospital after chest tube was placed.She was discharged several days later after the chest tube was removed. She has been on home oxygen since discharge. She had recently noted that at times her oxygen levels dipped down into the 70s and saw her PCP 2 weeks ago who ordered an outpatient CT scan. She had a CT scan done today which demonstrated a large left-sided pneumothorax and patient was notified to come to the emergency department. Patient states that her symptoms today do not feel like they did a month ago when she had a pneumothorax.She denies feeling any worsening shortness of breath, having any pain or having any recent cough. She denies fever. 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 : None HEENT: None Psych: None Musculoskeletal: Osteoarthritis Derm: None - Past Surgical History /RADIO TELEVISION ANNOUNCER: Other (breast nodule removed) HEENT: Cataracts - Present Medications Home Medications: Ambulatory Orders Medication Instructions Recorded Confirmed Albuterol Sulfate [Proair 2 puffs PO QID PRN 05/18/22 07/11/22 Respiclick] Fluticasone Propion/Salmeterol 1 puffs IH BID 05/18/22 07/11/22 [Wixela 250-50 Inhub] Calcium Carbonate/Vitamin D3 1 tab PO DAILY 07/11/22 07/11/22 [Calcium 600-Vit D3 200 Tablet] Cyanocobalamin (Vitamin B-12) 1 tab PO DAILY 07/11/22 07/11/22 [Vitamin B-12 (1000 mcg sublingual)] Guaifenesin/Dextromethorphan 1 tab PO BID 07/11/22 07/11/22 [Mucinex Dm ER 600-30 mg Tablet] Krill/Maury-3/Dha/Epa/Lipids 1 cap PO DAILY 07/11/22 07/11/22 [Krill Oil 350 mg Softgel] Magnesium Oxide [Mag Ox] 1 tab PO DAILY 07/11/22 07/11/22 Multivit with Iron,Minerals 1 tab PO DAILY 07/11/22 07/11/22 [Multivitamins with Iron] - Allergies Allergies/Adverse Reactions: Allergies Allergy/AdvReac Type Severity Reaction Status Date / Time Penicillins Allergy Rash Verified 07/11/22 09:11 - Social History Smoking Status: Current every day smoker - POLST POLST Status: Full Code PD ED PE NORMAL - General General: Alert and oriented X 3, No acute distress, Well developed/nourished - HEENT HEENT: Atraumatic - Neck Neck: Supple, no meningeal sign - Cardiac Cardiac: RRR - Respiratory Respiratory: No respiratory distress, Other (Absent breath sounds on the left) - Abdomen Abdomen: Soft, Non tender - Derm Derm: Warm and dry - Extremities Extremities: No edema - Neuro Neuro: Normal speech Results - Vitals Vitals: Vital Signs - 24 hr 08/03/22 08/03/22 08/03/22 14:21 15:07 15:33 Temperature 37.0 C Heart Rate 89 73 66 Respiratory 25 H 25 H 18 Rate Blood Pressure 130/87 H 137/70 H 122/67 O2 Saturation 92 90 L 91 L If not protocol 3 3 : Oxygen Flow, liters/minute 08/03/22 08/03/22 08/03/22 16:09 16:34 17:20 Temperature Heart Rate 68 71 64 Respiratory 18 18 18 Rate Blood Pressure 118/76 118/84 H 113/67 O2 Saturation 90 L 93 90 L If not protocol 3 3 : Oxygen Flow, liters/minute Oxygen O2 Source Nasal cannula - Labs Labs: Laboratory Tests 08/03/22 08/03/22 08/03/22 14:26 14:26 14:26 WBC 8.2 RBC 4.84 Hgb 14.2 Hct 47.1 H MCV 97.3 MCH 29.3 MCHC 30.1 L RDW 13.5 Plt Count 311 MPV 8.9 Neut # (Auto) 4.6 Lymph # (Auto) 2.4 Clare # (Auto) 0.6 Eos # (Auto) 0.6 Baso # (Auto) 0.1 Absolute Nucleated RBC 0.00 Nucleated RBC % 0.0 PT 11.8 INR 1.0 Sodium 139 Potassium 4.3 Chloride 94 L Carbon Dioxide 32 Anion Gap 13.0 BUN 10 Creatinine 0.6 Estimated GFR (MDRD) 99 Glucose 107 H Calcium 9.5 Total Bilirubin 0.6 AST 16 ALT 14 Alkaline Phosphatase 77 Total Protein 7.4 Albumin 3.9 Globulin 3.5 Albumin/Globulin Ratio 1.1 Nasal Adenovirus (PCR) Nasal B. parapertussis DNA (PCR) Nasal Coronavir 229E PCR Nasal Coronavir HKU1 PCR Nasal Coronavir NL63 PCR Nasal Coronavir OC43 PCR Nasal Enterovir/Rhinovir PCR Nasal Influenza B PCR Nasal Influenza A PCR Nasal Parainfluen 1 PCR Nasal Parainfluen 2 PCR Nasal Parainfluen 3 PCR Nasal Parainfluen 4 PCR Nasal RSV (PCR) Nasal B.pertussis DNA PCR Nasal C.pneumoniae (PCR) James Human Metapneumo PCR Nasal M.pneumoniae (PCR) Nasal SARS-CoV-2 (PCR) 08/03/22 15:09 WBC RBC Hgb Hct MCV MCH MCHC RDW Plt Count MPV Neut # (Auto) Lymph # (Auto) Clare # (Auto) Eos # (Auto) Baso # (Auto) Absolute Nucleated RBC Nucleated RBC % PT INR Sodium Potassium Chloride Carbon Dioxide Anion Gap BUN Creatinine Estimated GFR (MDRD) Glucose Calcium Total Bilirubin AST ALT Alkaline Phosphatase Total Protein Albumin Globulin Albumin/Globulin Ratio Nasal Adenovirus (PCR) NOT DETECTED Nasal B. parapertussis DNA (PCR) NOT DETECTED Nasal Coronavir 229E PCR NOT DETECTED Nasal Coronavir HKU1 PCR NOT DETECTED Nasal Coronavir NL63 PCR NOT DETECTED Nasal Coronavir OC43 PCR NOT DETECTED Nasal Enterovir/Rhinovir PCR NOT DETECTED Nasal Influenza B PCR NOT DETECTED Nasal Influenza A PCR NOT DETECTED Nasal Parainfluen 1 PCR NOT DETECTED Nasal Parainfluen 2 PCR NOT DETECTED Nasal Parainfluen 3 PCR NOT DETECTED Nasal Parainfluen 4 PCR NOT DETECTED Nasal RSV (PCR) NOT DETECTED Nasal B.pertussis DNA PCR NOT DETECTED Nasal C.pneumoniae (PCR) NOT DETECTED James Human Metapneumo PCR NOT DETECTED Nasal M.pneumoniae (PCR) NOT DETECTED Nasal SARS-CoV-2 (PCR) NOT DETECTED Procedures - Chest Tube (location) - Major left middle axillary line Chest tube preparation: Consent obtained, Time out completed, Sterile prep and drape Chest tube location: Left, Mid axillary line Chest tube anesthesia: Lidocaine Chest tube size: 13 (Bakari Close Thoracic Vent) Chest tube return: Air, Connected to suction Chest tube after care: Confirmed with xray, Pt tolerated well - Procedural sedation Sedation prep: Informed consent, Time out completed, Last meal, ASA 3 - severe disease, IV O2 monitor, ET CO2 monitor, RT present Sedation Medications: ketamine Mallampati classification: II Patient status during sedation: Responds to tactile, Vitals remained stable, Recovered uneventfully, Needed resp assistance Sedation recovery: Recovered uneventfully Time in sedation (Minutes): 12 PD Medical Decision Making - ED course Complexity details: reviewed results, re-evaluated patient, d/w patient, d/w family Procedural Risk Factors Specific to Patient: Hypoxia with sedation given underlying COPD ED course: Pt presenting after outpatient CT demonstrating large L sided pneumothorax. Pt is familiar to me from admission in mid June for spontaneous pneumothorax on the same side. VSS on pt's normal O2. Consented pt for procedural sedation and tube thoracostomy with Bakari Close thoracic vent. Spouse at bedside. Pt tolerated sedation and tube placement with repeat XR showing lung re expansion. D/W precision lens generator surgery who recommends transfer to facility with thoracic surgeon as this is a reoccurrent episode. Pt signed out at shift change to oncoming provider. 1520 - D/W Dr. Zhang - On-call surgery. Because this is patient's second pneumo in the matter of a few weeks she recommends transfer to facility with thoracic surgery as patient may need Procedure we are not able to offer here such as a pleurodesis. Patient is signed out at shift change. She is awaiting transfer to facility with thoracic surgery. Departure - Departure Disposition: 02 Transfer Acute Care Hosp Clinical Impression: Spontaneous pneumothorax Condition: Serious
--- NOTE | 2022-08-03 16:06 | ED Physician Documentation ---
ED Addendum - Addendum Addendum: 08/03/22 16:05 Patient was signed out to me by Dr. Rodriguez awaiting transfer for thoracic surgery evaluation for recurrent pneumothorax. A chest tube was placed prior to my taking over the patient. An EKG was performed at 1519, shows a rate of 68, Normal sinus rhythm. Normal axis. Normal ST segments. Normal TN interval. 08/03/22 17:10 I discussed the case with Dr. Jake Watt, thoracic surgery at [facility] in [place] who accepts the patient in transfer. The patient will likely be transferred tomorrow. Patient will continue to board in the emergency department until then. Departure - Departure Disposition: 02 Transfer Acute Care Hosp Clinical Impression: Spontaneous pneumothorax Condition: Serious
[2022-08-03 16:11] LABS: B. PARAPERTUSSIS- RESP PCR PAN NOT DETECTED; B. PERTUSSIS- RESP PCR PANEL NOT DETECTED; C. PNEUMONIAE- RESP PCR PANEL NOT DETECTED; CORONAVIRUS 229E-RESP PCR NOT DETECTED; CORONAVIRUS HKU1-RESP PCR NOT DETECTED; CORONAVIRUS NL63-RESP PCR NOT DETECTED; CORONAVIRUS OC43-RESP PCR NOT DETECTED; HUMAN METAPNEUMOVIRUS NOT DETECTED; INFLUENZA A- RESP PCR PANEL NOT DETECTED; INFLUENZA B - RESP PCR PANEL NOT DETECTED; M. PNEUMONIAE- RESP PCR PANEL NOT DETECTED; PARAINFLUENZA VIRUS 1 NOT DETECTED; PARAINFLUENZA VIRUS 2 NOT DETECTED; PARAINFLUENZA VIRUS 3 NOT DETECTED; PARAINFLUENZA VIRUS 4 NOT DETECTED; RHINOVIRUS/ENTEROVIRUS NOT DETECTED; RSV- RESP PCR PANEL NOT DETECTED; SARS-CoV-2 -RESP PCR PANEL NOT DETECTED
[2022-08-03] MEDS ORDERED: ACETAMINOPHEN 325 MG TABLET PO STA ×2 (16:21→22:01)
[2022-08-03] MEDS ORDERED: MORPHINE 2 MG/ML CARPUJECT IVP STA (17:03)
--- NOTE | 2022-08-03 17:26 | XRAY Report ---
PROCEDURE: Chest for Line Placement INDICATIONS: chest tube placement TECHNIQUE: One view of the chest was acquired. COMPARISON: CT chest dated 08/03/2022. FINDINGS: Surgical changes and devices: Small bore left chest tube. Lungs and pleura: Subtotal reexpansion of the left lung with minimal apical pneumothorax noted and m inimal basilar pneumothorax noted. Diffuse interstitial change in the left lung greater than right alex ng may represent interstitial pulmonary edema. Mediastinum: Mediastinal contours appear normal. Heart size is normal. Bones and chest wall: No suspicious bony lesions. Overlying soft tissues appear unremarkable. IMPRESSION: 1. Interval chest tube placement with subtotal reexpansion of the left lung. 2. Question asymmetric interstitial pulmonary edema, left greater than right. Reviewed by: Gigi Arciniega MD on 08/03/2022 4:28 PM PST Approved by: Gigi Arciniega MD on 08/03/2022 4:28 PM PST Station ID: [id number]
[2022-08-03] MEDS ORDERED: IBUPROFEN 600 MG TABLET PO STA (18:49)
[2022-08-04] MEDS ORDERED: SODIUM CHLORIDE 0.9% 1,000 ML IV STA (10:20)
--- NOTE | 2022-08-04 10:21 | ED Physician Documentation ---
ED Addendum - Addendum Addendum: 08/04/22 10:19 72-year-old Zaynab Dawkins is awaiting transfer to [facility] in [place] for pleurodesis after a second spontaneous pneumothorax within the last month. I was asked to come into her room for evaluation when she developed significant cramping in both of her calves. She normally uses some magnesium spray at home and her son is bringing this. I evaluated the patient at the bedside with POCUS and found her IVC to measure 7.3 mm with complete collapse with respiration con sistent with dehydration on the order of 2 L of saline. She was administered a liter of saline intravenously as a bolus at 10:20 AM. The patient indicates to me that she usually does eight 8 ounce glasses of fluid per day and that since she has been here she believes she has had quite a bit less than her usual. 08/04/22 10:20 08/04/22 10:48 Called into the room with pains to the site of insertion of the tube and low oxygen saturations. We provided some medication with Toradol 30 mg IV and we have taken an x-ray of the patient's chest for interval evaluation.
[2022-08-04] MEDS ORDERED: KETOROLAC 30 MG/ML VIAL IVP STA (10:45)
--- NOTE | 2022-08-04 12:26 | XRAY Report ---
PROCEDURE: Chest 1 View X-Ray INDICATIONS: chest pain TECHNIQUE: One view of the chest was acquired. COMPARISON: None. FINDINGS: Surgical changes and devices: A left-sided chest tube is seen. Lungs and pleura: Small left apical pneumothorax is again seen unchanged in size and appearance from prior studies. Persistent airspace opacity throughout left hemithorax is seen suggestive of extensiv e pulmonary infiltrates. No gross pneumothorax. Small left pleural effusion is seen. Mediastinum: Mediastinal contours appear normal. Heart size is normal. Bones and chest wall: No suspicious bony lesions. Overlying soft tissues appear unremarkable. IMPRESSION: Persistent small left apical pneumothorax not significantly changed in size compared to previous day. No gross right-sided pneumothorax. Persistent airspace opacities in left hemithorax suggestive of ex tensive pulmonary infiltrates. Small left pleural effusion. Reviewed by: Manas Ramey MD on 08/04/2022 12:25 PM PST Approved by: Manas Ramey MD on 08/04/2022 12:25 PM [facility] Station ID: [id number]
[2022-08-04] MEDS ORDERED: IPRATROPIUM/ALBUTEROL 3 ML NEB INH STA (13:48)
[2022-08-04] MEDS ORDERED: LORazepam 1 MG TABLET PO STA (13:48)
[2022-08-04] MEDS ORDERED: ACETAMINOPHEN 325 MG TABLET PO PRN (14:28)
[2022-08-04 16:27] VITALS: BP 100/64
== END 2022-08-04 16:27 | disposition short-term general hospital (02) ==
LOC: ED 14:04
DX: J93.83 Other pneumothorax (principal); F17.200 Nicotine dependence, unspecified, uncomplicated; J44.9 Chronic obstructive pulmonary disease, unspecified; Z20.822 Contact with and (suspected) exposure to COVID-19; E86.0 Dehydration
CPT/HCPCS: 32551; 36415; 71045; 80053; 85025; 85610; 87633; 93005; 94640; 96374; 96375; 99152; 99284; 99285; A9270; J8499; 94770

== ENCOUNTER 2023-07-19 12:57 | Outpatient (CLI) | payer MEDICARE ==
--- NOTE | 2023-07-20 08:51 | CT Report ---
PROCEDURE: Chest WO INDICATIONS: SCREENING FOR LUNG CA TECHNIQUE: A CT scan of the chest was performed. Intravenous contrast media was not administered. Images were re corded and evaluated at appropriate window settings. Reformats: axial MIP of the chest, coronal and s agittal. For radiation dose reduction, the following was used: automated exposure control, adjustment of mA and/or kV according to patient size. COMPARISON: None. FINDINGS: Image quality: Excellent. Lungs and pleura: Severe emphysematous lung changes with scarring and dependent changes in the bases mostly juxta pleural. 6 cm left basilar juxtapleural nodule (109/4) 9 mm left basilar extrapleural solid nodule (60/4) Mediastinum: Heart size is normal. No pericardial effusion. No large vessel abnormality. No mediastin al adenopathy by size criteria. Chest wall and lower neck: Thyroid is unremarkable. No axillary or supraclavicular adenopathy by size . Bones: Kyphotic deformity of the visualized spine. Upper Abdomen: Nonobstructive calculus in upper po le left kidney. IMPRESSION: Several areas of scarring/nodules of the lungs. Lung RADS 3, probably benign. Recommend [address] follow-up. Other: Nonobstructive 1 to 2 mm calculus in upper pole left kidney. Reviewed by: Demian Noguera MD on 07/20/2023 8:50 AM PST Approved by: Demian Noguera MD on 07/20/2023 8:50 AM PST Station ID: [id number]
== END 2023-07-19 12:58 | disposition home or self-care (01) ==
LOC: DI 12:57
PROVIDERS: ATTEND Internal Medicine
DX: Z12.2 Encounter for screening for malignant neoplasm of respiratory organs (principal); R91.8 Other nonspecific abnormal finding of lung field; N20.0 Calculus of kidney

== ENCOUNTER 2024-02-19 12:48 | Outpatient (CLI) | payer MEDICARE ==
--- NOTE | 2024-02-19 16:24 | CT Report ---
PROCEDURE: Chest WO INDICATIONS: LUNG NODULES TECHNIQUE: A CT scan of the chest was performed. Intravenous contrast media was not administered. Images were re corded and evaluated at appropriate window settings. Reformats: axial MIP of the chest, coronal and s agittal. For radiation dose reduction, the following was used: automated exposure control, adjustment of mA and/or kV according to patient size. COMPARISON: 07/19/2023. FINDINGS: Image quality: Diagnostic. Chest wall and lower neck: No thyroid nodule which requires sonographic follow up. No axillary or sup raclavicular adenopathy by size. Lungs and pleura: Marked interval progression of a infectious or inflammatory process predominantly i n the right lower lobe where it has a posterior predominance, as well as the posterior segment of the right upper lobe, and, to a lesser extent posterior aspect of the left upper lobe and posterior basa l left lower lobe. Consider bronchopneumonia. Consider aspiration pneumonia. No pleural effusions. No pneumothorax. No suspicious pulmonary nodules which require follow up. Mediastinum: Heart size is normal. No pericardial effusion. No large vessel abnormality. No mediastin al adenopathy by size criteria. Bones: No aggressive osseous abnormality. Diffuse osteopenia.. Upper Abdomen: Unremarkable. IMPRESSION: There is definite interval progression of the process which is consistent with an infectious or infla mmatory process. Consider bronchopneumonia. Consider aspiration pneumonia. Recommend follow-up CT in 3-6 months after a potential therapy. Reviewed by: Gigi Arciniega MD on 02/19/2024 4:22 PM PDT Approved by: Gigi Arciniega MD on 02/19/2024 4:22 PM PDT Station ID: [id number]
== END 2024-02-19 12:49 | disposition home or self-care (01) ==
LOC: DI 12:48
PROVIDERS: ATTEND Internal Medicine
DX: R91.8 Other nonspecific abnormal finding of lung field (principal)